=== PATIENT | male | born 1990 | race African-American/Black ===

== ENCOUNTER 2017-03-21 23:59 | Emergency (ER) | payer MEDICAID ==
[~2017-03-21] VITALS: Ht 170.2 cm; Wt 86.0 kg
[2017-03-22] MEDS ORDERED: HYDROCODONE/ACETAMINOPHEN 5/325MG TABLET PO STA (02:18)
[2017-03-22] MEDS ORDERED: LABETALOL HCL 20MG/4ML CARPUJECT IV ONE (02:30)
[2017-03-22] MEDS ORDERED: TETANUS, DIPHTHERIA, PERTUSSIS VAC/PF 0.5ML (>7YR OLD) IM ONE (02:30)
[2017-03-22 02:54] LABS: EOSINOPHILS % 1.3 % (0.0-5.0); HEMATOCRIT. 46.7 % (42.0-52.0); HEMOGLOBIN. 15.6 g/dL (14.0-18.0); LYMPHOCYTES % 19.5 % (20.0-50.0); MEAN CORPUSCULAR HEMOGLOBIN 29.5 pg (28.0-32.0); MEAN CORPUSCULAR VOLUME 88.3 fL (80.0-94.0); MEAN PLATELET VOLUME 8.3 fl (7.4-10.4); MONOCYTES % 8.2 % (2.0-8.0); PLATELET 260 x1000/uL (130-400); RED BLOOD CELL COUNT 5.29 mill/uL (4.7-6.1); RED CELL DISTRIBUTION WIDTH 14.2 % (11.6-14.6)
[2017-03-22 02:59] LABS: PROTHROMBIN TIME 10.1 sec (9.4-11.6)
[2017-03-22 03:05] LABS: CHLORIDE 109 mEq/L (98-107)
[2017-03-22 03:17] LABS: CARBON DIOXIDE 19 mEq/L (21-32); ETHANOL BLOOD 154 mg/dL
[2017-03-22 04:25] VITALS: BP 135/82
== END 2017-03-22 05:05 | disposition home or self-care (01) ==
LOC: ER 03-22 02:54
DX: S09.8XXA Other specified injuries of head, initial encounter (principal); S00.83XA Contusion of other part of head, initial encounter; S62.316A Displaced fracture of base of fifth metacarpal bone, right hand, initial encounter for closed fracture; S63.501A Unspecified sprain of right wrist, initial encounter; S02.2XXA Fracture of nasal bones, initial encounter for closed fracture; S60.221A Contusion of right hand, initial encounter; F17.210 Nicotine dependence, cigarettes, uncomplicated; F12.10 Cannabis abuse, uncomplicated; Y08.89XA Assault by other specified means, initial encounter; Y93.89 Activity, other specified
CPT/HCPCS: 36415; 70450; 70486; 73110; 73130; 80053; 85025; 85610; 90471; 90715; 99285; G0482; J3490; Z7610

== ENCOUNTER 2017-03-25 21:50 | Emergency (ER) | payer MEDICAID ==
[~2017-03-25] VITALS: Ht 172.7 cm; Wt 84.0 kg
[2017-03-26 00:30] VITALS: BP 124/81
== END 2017-03-26 01:02 | disposition home or self-care (01) ==
LOC: ER 21:50
DX: S62.306A Unspecified fracture of fifth metacarpal bone, right hand, initial encounter for closed fracture (principal); F17.200 Nicotine dependence, unspecified, uncomplicated; F12.10 Cannabis abuse, uncomplicated; Y09 Assault by unspecified means
CPT/HCPCS: 29125; 99283